=== PATIENT | male | born 1985 | race Caucasian/White ===

== ENCOUNTER → 2016-10-07 | Outpatient (CLI) | payer OTHER ==
[2016-10-07 12:23] LABS: BLOOD UREA NITROGEN 16 mg/dL (7-18)
[2016-10-07 12:24] LABS: ASPARTATE AMINO TRANSFERASE 13 U/L (15-37)
== END | disposition home or self-care (01) ==
LOC: LAB 11:34
PROVIDERS: ATTEND Nurse Practitioner Gerontology
DX: R53.83 Other fatigue (principal); Z68.33 Body mass index [BMI] 33.0-33.9, adult; Z82.49 Family history of ischemic heart disease and other diseases of the circulatory system
CPT/HCPCS: 36415; 80053; 84436; 84443

== ENCOUNTER 2016-10-12 07:25 | Emergency (ER) | payer OTHER ==
[~2016-10-12] VITALS: Ht 177.8 cm; Wt 100.9 kg
[2016-10-12 07:26] VITALS: BP 143/87
[2016-10-12] MEDS ORDERED: KETOROLAC 30 MG/1 ML ONE (07:51)
[2016-10-12] MEDS ORDERED: KETOROLAC 30 MG/1 ML IM ONE (08:00)
== END 2016-10-12 08:45 | disposition home or self-care (01) ==
LOC: ED 08:15
DX: S60.212A Contusion of left wrist, initial encounter (principal); S90.02XA Contusion of left ankle, initial encounter; V59.9XXA Occupant (driver) (passenger) of pick-up truck or van injured in unspecified traffic accident, initial encounter; Y93.89 Activity, other specified; Y92.488 Other paved roadways as the place of occurrence of the external cause; Y99.8 Other external cause status
CPT/HCPCS: 73610; 96372; 99284; J1885

== ENCOUNTER → 2017-09-27 | Outpatient (CLI) | payer OTHER ==
[2017-09-27 08:49] LABS: BASOPHILS # (AUTO) 0.08 x10^3/uL (0-0.1); BASOPHILS % (AUTO) 1 % (0-1); EOSINOPHILS # (AUTO) 0.17 x10^3/uL (0-0.4); EOSINOPHILS % (AUTO) 3 % (1-7); LYMPHOCYTES # (AUTO) 1.88 x10^3/uL (1-3.4); LYMPHOCYTES % (AUTO) 31 % (22-44); MD NO; MEAN CORPUSCULAR HEMOGLOBIN 30.4 pg (27.5-34.5); MEAN CORPUSCULAR HGB CONC 33.8 g/dL (33.2-36.2); MEAN CORPUSCULAR VOLUME 89.9 fL (81-97); MEAN PLATELET VOLUME 7.2 fL (7.4-10.4); MONOCYTES # (AUTO) 0.55 x10^3/uL (0.2-0.8); MONOCYTES % (AUTO) 9 % (2-9); NEUTROPHILS # (AUTO) 3.34 x10^3/uL (1.8-6.8); NEUTROPHILS % (AUTO) 56 % (42-75); PLATELET COUNT 381 x10^3/uL (130-400); RED BLOOD COUNT 5.25 x10^6/uL (4.38-5.82); RED CELL DISTRIBUTION WIDTH 12.7 % (9.4-14.8)
[2017-09-27 08:58] LABS: ALANINE AMINOTRANSFERASE 65 U/L (12-78); ANION GAP 7 mmol/L (5-15); CHLORIDE 108 mmol/L (98-107)
[2017-09-27 09:01] LABS: ALKALINE PHOSPHATASE 61 U/L (45-117); BILIRUBIN,TOTAL 0.6 mg/dL (0.2-1.0); CHOLESTEROL, TOTAL 173 mg/dL (140-239); CREATININE 1.12 mg/dL (0.7-1.3); HDL CHOL % 33 % (26-37); HDL CHOLESTEROL (DIRECT) 57 mg/dL (40-60); LDL CHOLESTEROL,CALCULATED 105 mg/dL (54-169); LDL/HDL RATIO 1.8 (0.5-3.0); TOTAL PROTEIN 7.7 g/dL (6.4-8.2); TRIGLYCERIDES 53 mg/dL (50-200); VLDL CHOLESTEROL 11 mg/dL (0-25)
== END | disposition home or self-care (01) ==
LOC: LAB 08:36
PROVIDERS: ATTEND Nurse Practitioner Family
DX: Z00.00 Encounter for general adult medical examination without abnormal findings (principal)
CPT/HCPCS: 36415; 80053; 80061; 85025